=== PATIENT | female | born 1965 | race Caucasian/White ===

== ENCOUNTER 2024-12-28 15:42 | Emergency (ER) | payer OTHER, SELFPAY ==
[2024-12-28 15:59] VITALS: BP 170/81; PULSE 79; RESP 18; TEMP 36.1; O2SAT 97; BMI 41.2
--- NOTE | 2024-12-28 16:11 | ED.HA ---
HPI - Headache General Chief Complaint: Headache Stated Complaint: migraine Time Seen by Provider: 12/28/24 19:48 History of Present Illness ED Provider: Gilbert WALTER Narrative: The patient is a 59-year-old woman who has a long history of headaches which she calls migraine headaches. She has sumatriptan that she uses at home for her headaches. She has seen a neurologist. She has had an MRI. She says that usually her headaches are managed with sumatriptan. She has never come to the emergency room for a bad headache before. She says that yesterday she had the spent a lot of time with the an autistic grandchildren and she was feeling very achy by the end of the evening. She says that she woke up at 03:00 to go to the bathroom and she did not have a headache. However at 06:00 she woke up again with a headache. The headache was typical of her usual headaches. She used sumatriptan twice but she got no relief and came to the emergency room. She has been feeling photophobic. She has had nausea and vomiting. No fever, sweats, chills. No neck stiffness. Related Data Allergies Allergy/AdvReac Type Severity Reaction Status Date / Time Penicillins (PCN) Allergy Rash Verified 12/28/24 16:11 Sulfa (Sulfonamide Allergy Rash Verified 12/28/24 16:11 Antibiotics) Review of Systems Review of Systems: Yes all other systems are reviewed and are negative [facility] Social History Social History Advance Directives: No Advance Directives Information Provided: No Physical Exam Vital Signs: Vital Signs: Last Vital Signs Temp 0 F L 12/28/24 21:50 Pulse 0 L 12/28/24 21:50 Resp 0 L 12/28/24 21:50 BP 0/0 L 12/28/24 21:50 Pulse Ox 0 L 12/28/24 21:50 O2 Del Method Room Air 12/28/24 21:43 BMI result Body Mass Index 41.2 Const: General: cooperative, healthy appearing, no acute distress, well developed, alert, awake and Physically active Orientation/consciousness: patient oriented x3 HEENT: Other: The face is symmetrical. Mucous membranes moist. Eyes: Other: Pupils are round equal, conjunctivae are clear, extraocular movements intact Neck: Neck: Yes normal visual inspection, Yes full ROM and Yes no meningeal signs Resp: Effort & Inspection: normal respiratory effort Auscultation: clear to auscultation bilaterally Cardio: Rate: regular rate Rhythm: regular rhythm Heart sounds: S1 normal heart sound present and S2 normal heart sound present Skin: Other: The skin is dry and unremarkable General skin exam: no rashes or lesions noted Neuro: General: patient oriented x3, tone normal, moves all extremities, no meningeal signs, no focal motor deficits and CN's II-XI intact bilaterally Extrem: Other: There is no calf swelling or tenderness. No asymmetry. No peripheral edema. Course Course Course Narrative: This is a Rapid Medical Exam performed in triage by Marya Boogie PA-C. Full HPI, ROS and PE to be performed by primary ED provider. 59 yo F w/pmhx migraines presenting to the ED c/o migraine headache since 6AM. Took 2 Imitrex without relief (0630 & 0830). +photophobia, nausea and vomiting. PE: NAD, nontoxic appearing, nonfocal Plan: labs, pain control Medications Administered Discontinued Medications Generic Name Dose Route Start Last Admin Trade Name Meghan PRN Reason Stop Dose Admin Diphenhydramine HCl 25 mg 12/28/24 19:44 12/28/24 19:55 Diphenhydramine Hcl 50 Mg/Ml Vial IVPUSH 12/28/24 19:45 25 mg ONCE ONE Administration Sodium Chloride 1,000 mls @ 999 mls/hr 12/28/24 19:45 12/28/24 21:42 Ns IV 12/28/24 20:45 Infused .Q1H1M SEDA Infusion Ketorolac Tromethamine 15 mg 12/28/24 19:44 12/28/24 19:55 Ketorolac Tromethamine 15 Mg/Ml Vial IVPUSH 12/28/24 19:45 15 mg ONCE ONE Administration Metoclopramide HCl 10 mg 12/28/24 19:44 12/28/24 19:55 Metoclopramide Hcl 10 Mg/2 Ml Vial IVPUSH 12/28/24 19:45 10 mg ONCE ONE Administration Medical Decision Making Medical Decision Making [facility] Narrative: the patient is a 59-year-old woman with a history of headaches that she describes as migraine headaches. Normally she is able to manage her headaches with sumatriptan. She woke up this morning with a headache typical of her usual headaches but which did not respond to her usual management. Clinically the patient does not appear acutely ill in any way. She has a supple neck and an overall very benign clinical appearance. I do not have any significant suspicion for subarachnoid hemorrhage or meningitis or other acutely dangerous headache. I think this is a worse than usual typical headache for this patient. The patient was treated with ketorolac, metoclopramide, diphenhydramine, and IV fluids. She had very good resolution of her headache and was comfortable going home. She should follow up with the regular providers. Lab Data 12/28/24 16:54 12/28/24 16:54 Labs: Lab Results 12/28/24 Range/Units 16:54 WBC 5.2 (4.8-10.8) X10*3/uL RBC 4.71 (4.20-5.50) X10*6/uL Hgb 13.0 (12.0-16.0) g/dl Hct 40.1 (37.0-47.0) % MCV 85.1 (80.0-98.0) fL MCH 27.6 (27.0-33.0) pg MCHC 32.4 (31.0-35.0) g/dl RDW 14.1 (11.0-16.0) % Plt Count 280 (160-400) X10*3/uL MPV 9.1 L (9.4-12.3) fL Immature Gran % (Auto) 0.2 (0.0-0.4) % Neut % (Auto) 46.7 (45-73) % Lymph % (Auto) 41.8 H (20-40) % [place] % (Auto) 6.7 (2-11) % Eos % (Auto) 3.6 (0-4) % Baso % (Auto) 1.0 (0-2) % Lymph # (Auto) 2.2 (1.2-4.9) X10*3/uL [place] # (Auto) 0.4 (0.1-1.2) X10*3/uL Eos # (Auto) 0.2 (0.0-0.4) X10*3/uL Baso # (Auto) 0.1 (0.0-0.2) X10*3/uL Abs Immat Gran (auto) 0.01 (0.00-0.03) X10*3/uL Absolute Neuts (auto) 2.4 (2.0-8.3) x10*3/uL Absolute Nucleated RBC 0.000 (0.0-0.012) X10*3/uL Nucleated RBC % (auto) 0.0 (0.0-0.2) /100WBC Sodium 140 (135-145) mmol/L Potassium 3.7 (3.3-5.1) mmol/L Chloride 106 (96-108) mmol/L Carbon Dioxide 24 (22-29) mmol/L Anion Gap 14 (12-20) BUN 10 (9-16) mg/dL Creatinine 0.79 (0.5-1.4) mg/dL Estim Creat Clear Calc 88.0 Estimated GFR > 60 Random Glucose 95 (60-115) mg/dL Calcium 9.3 (8.4-10.2) mg/dL Discharge Plan Discharge Clinical Impression: Migraine headache Patient Disposition: Home, Self-Care Instructions: Migraine Headache (ED) Additional Instructions: The medications that you received today were ketorolac (Toradol), metoclopramide (Reglan), and diphenhydramine (Benadryl). You also received IV fluids. Please plan on getting some rest tonight. Please follow up with your regular doctors. Return to the emergency room if worse. Referrals: Dedra Duarte PA [Primary Care Provider, Hospitalist] Interventions: ED Discharge Assessment Last Done: 12/28/24 21:50 Discharge Date/Time: 12/28/24 21:51 Print Language: Greek
[2024-12-28 17:02] LABS: MANUAL DIFF FLAG NO
[2024-12-28 17:04] LABS: Hematocrit 40.1 % (37.0-47.0); Hemoglobin 13.0 g/dl (12.0-16.0); Imm Gran Abs Auto 0.01 X10*3/uL (0.00-0.03); Imm Gran Pct Auto 0.2 % (0.0-0.4); Lymphocytes Absolute Auto 2.2 X10*3/uL (1.2-4.9); Mean Corpuscular HGB Conc 32.4 g/dl (31.0-35.0); Mean Corpuscular Hemoglobin 27.6 pg (27.0-33.0); Mean Corpuscular Volume 85.1 fL (80.0-98.0); NRBC Abs Auto 0.000 X10*3/uL (0.0-0.012); NRBC Pct Auto 0.0 /100WBC (0.0-0.2); Platelet Count 280 X10*3/uL (160-400); Red Blood Count 4.71 X10*6/uL (4.20-5.50); White Blood Count 5.2 X10*3/uL (4.8-10.8)
--- OUTSIDE RECORDS SUMMARY | 2024-12-28 17:08 | XMS_ITS | Data Portability ---
Author Organization [place] - [facility], [facility] [place] Address [address] [place] [address] Care Team Providers Care Electrical Controls Assembler Name Role Phone BAILEY JOSSELINSALLIE Primary Care Provider [phone] Assessment No assessment recorded. Plan of Treatment Reminders Order Date Submit Date Provider Last Modified By Organization Details Last Modified Time Details Appointments None recorded. Lab None recorded. Referral None recorded. Procedures None recorded. Surgeries None recorded. Imaging XR, thoracic spine, 2 view - ROOM 1, T-Spine Pain 2023 024 [email or web address] [facility], [address], [place], [address], 14:37:49 Medication Orders None recorded. Patient TargetsNo targets recorded. Patient InstructionsNo instructions recorded. Reason for Referral None Reported. Results Created Date Observation Date Name Description Value Unit Range Abnormal Flag Note LastModifiedBy Organization Detail LastModifiedTime 08/29/1908/29/2023 XR, thora cic spine , 2 view [email or web address] ?Encry pted=s hAaTro YD8dLq bEUv6g %2BXZw aYqtaq 0bqfl% 2Fg9IQ a4ajBk vP9nXo QUaueC m3YtLR FvZlgJ JJ8mAn HZtai3 0m0401 AC0Kpa HWFVqH eUC8mr 84%3D INTERFACE [facility] [address], [place], [address], 08/29/2023 13:32:11 08/29/19 24 08/29/2023 XR, thora cic spine , 2 view [email or web address] ?Encry pted=s hAaTro YD8dLq bEUv6g %2BXZw aYqtaq 0bqfl% 2Fg9IQ a4ajBk vP9nXo QUaueC m3YtLR FvZlgJ JJ8mAn HZtai3 6z2862 AC0Kpa HWFVqH eUC8mr 84%3D INTERFACE [facility] [address], [place], [address], 08/29/2023 13:32:13 Result Notes Documentation Provider Name and Address Organization Details Recorded Time Xr, Thoracic Spine, 2 View : [email or web address] Encrypted=ptFgZusJK9kEpvA Uv6g%9UAHbcUjpgm6pcou%2Fg 7YRp8nvHgaV0eGzKBjgdDd2Vv UQDwFuzJSL0qDnYGiyz65d699 7TH4PbgOCLPnJwLA2ax75%3D Not Available [facility] 08/29/2023 13:3 2:12 Xr, Thoracic Spine, 2 View : [email or web address] Encrypted=xoRfVozPZ8dCgyR Uv6g%1SNVknOilww9rqzp%2Fg 2MXv2kiSkxF7vDcRKidbBs2Ob BXMeXwoMPZ5rBdSVavc44g599 6VS7IpwUCYYzYoHY5yl26%3D Not Available [facility] 08/29/2023 13:3 2:13 Problems Name Problem SNOMED Code Status Onset Date Resolution Date Notes Provider Name and Address Organization Details Recorded Time No complaints 070047849 Active Status : 'A'; Not Available [facility] 09:26:11 Problem Notes None recorded. Medical Equipment None Reported. Allergies Allergen ID Allergen Name Allergen Category Reaction Reaction Severity Criticality Documentation Date Start Date Code Code System Note Provider Name and Address Organization Details Recorded Time 15470 Product containin g penicilli n (product) medicatio n Not available Not available Not available 04/30/20232013 39444 8001 SNOMED Aller gyRea ction : 'Skin React ion'; Not Available [facility] 4 12:08:57 11333 Substance with sulfonami de structure and antibacte rial mechanism of action (substanc e) medicatio n Not available Not available Not available 04/30/20232013 30829 8003 SNOMED Not Available [facility] 4 12:08:57 Medications Name Sig Start Date Stop Date Status Note LastModified by Organization Details LastModified Time doxepin 25 mg capsule TAKE 1 CAPSULE BY MOUTH AT BEDTIME active Not Available Not Available No t Available sumatriptan 50 mg tablet PLEASE SEE ATTACHED FOR DETAILED DIRECTIONS active Not Available Not Available N ot Available tramadol 50 mg tablet TAKE 1 TABLET BY MOUTH EVERY 4 HOURS NEEDED FOR PAIN active Not Available Not Available No t Available meloxicam 7.5 mg tablet TAKE 1 TABLET BY MOUTH EVERY DAY active Not Available Not Available No t Available methocarbamo l 750 mg tablet TAKE 1 TABLET BY MOUTH 3 TIMES A DAY FOR 14 DAYS, FOR NECK PAIN active Not Available Not Available No t Available clindamycin 1 % topical gel APPLY TO GROIN EVERY DAY AFTER BENZOYL PEROXIDE WASH active Not Available Not Available No t Available pantoprazole 40 mg tablet,delay ed release TAKE 1 TABLET BY MOUTH DAILY. DISCONTINUE OMEPRAZOLE active Not Available Not Available N ot Available ibuprofen 400 mg tablet TAKE 2 TABLETS BY MOUTH 3 TIMES A DAY active Not Available Not Available Not Available topiramate 200 mg tablet TAKE 1 TABLET BY MOUTH AT BEDTIME active Not Available Not Available No t Available hydroxychlor oquine 200 mg tablet TAKE 2 TABLETS BY MOUTH EVERY DAY active Not Available Not Available No t Available methylpredni solone 4 mg tablets in a dose pack TAKE 6 TABLETS ON DAY 1 DIRECTED ON PACKAGE AND DECREASE BY 1 TAB EACH DAY FOR A TOTAL OF 6 DAYS active Not Available Not Available No t Available oxycodone 5 mg tablet TAKE 1 TABLET BY MOUTH EVERY 4 HOURS NEEDED FOR PAIN active Not Available Not Available No t Available bupropion HCl XL 300 mg 24 hr tablet, extended release TAKE 1 TABLET BY MOUTH EVERY DAY active Not Available Not Available No t Available trospium ER 60 mg capsule,exte nded release 24 hr TAKE 1 CAPSULE BY MOUTH EVERY DAY IN THE MORNING active Not Available Not Available No t Available Myrbetriq 50 mg tablet,exten ded release TAKE 1 TABLET BY MOUTH EVERY DAY active Not Available Not Available No t Available Vitals Date Recorded Body height Provider Name an d Address Organization Details Last Updated DateTime 08/29/2023 160.02 cm Prakash Roche [place] - [facility] 08/29/2023 13:24:35 Social History None recorded. Functional Status None recorded. Mental Status None recorded. Family History Nothing Reported. Medical History No medical history recorded. Gynecological HistoryNo gynecological history recorded. Obstetrics History GPAL:G 0 P 0 0 0 0 Past Encounters Encounter ID Performer Location Encounter Start Date Encounter Closed Date Diagnosis/Indication Diagnosis SNOMED-CT Code Diagnosis ICD10 Code Diagnosis IMO Codes Diagnosis Note [id number] Mukesh Leon PA-C [place] [address] [place] [address] 08/29/2023 13:13:30 08/29/2023 14:37:49 Thoracic back pain 370279422 M54.6 Myofascial pain syndrome of thoracic spine 6865179850 9101 M79.18 Health Concerns Section Related Observation LastModified by Organization Detai ls LastModified Time None Recorded Concern Status LastModified by Organization Details LastModified Time None Recorded Advance Directives Directive None Recorded Payers Insurance Date Sequence Insurance Name Policy Number Policy Caruso Covered Member ID Caruso Member ID Guarantor Name 09/21/[address] [place] [address] [id number] Nevaeh Fenton [id number] Nevaeh Fenton Notes Date Note Type Note Provider Name and Address Organization Details Recorded Time 08/29/2023 text/html I am seeing the patient today under the supervision of Dr. Penn who was available but who did not see the patient.HPI:Patient s of 57-year-old female comes to the office with complaints of discomfort about the left side mid back region just below the shoulder blade. She woke up out of bed and was startled several days ago, then she developed this mid to upper back pain on the left side. Feels like a muscle strain just below her shoulder blade. She denies any fall or injury. She was seen in urgent care today.Past family, medical, social history and review of systems has been reviewed, updated and is located in the patient s chart.Examination: The patient is well appearing and in no apparent distress. Alert and oriented x3. Gait is symmetric. No significant swelling, warmth, erythema about the left shoulder or shoulder blade. She has discomfort over the rhomboid on the left side. Range of motion of the left shoulder is full with minimal discomfort. Peripheral, vascular, lymphatic examination, skin, neurological, coordination, reflexes, sensation are within normal limits.X-rays ordered, obtained and reviewed at [facility] 2 views thoracic spine do not demonstrate any fractures evident bony abnormalities.Impre ssion:Myofascial mid back pain, left sidePlan:I reviewed the x-rays and diagnosed with patient. I believe that this is a muscular type injury to the mid and upper back region on the left side. We discussed conservative measures for this problem. Topical treatment is recommended and discussed. I recommended heat/heating pad. TENS unit recommended and discussed. P.r.n. NSAIDs can be used. We discussed risks associated with NSAID use. We discussed gentle strengthening when the discomfort emanates. She will follow-up as needed. Mukesh Leon PA-C [address], [place], [address], [facility] - [facility] 08/29/2023 14:22:06 OBGyn Episode No OBEpisode recorded.
--- OUTSIDE RECORDS SUMMARY | 2024-12-28 17:08 | XMS_ITS | Patient Health Record ---
Author Organization [facility] Address [address] [place] [address] Support Name Relationship Address Phone CYNTHIA NÚÑEZ Guarantor Unknown Reason For Referral No Information Medications Medication SIG (Take, Route, Fr equency, Duration) Notes Start Date End Date Status PROzac 10MG 1 ORAL every morning ; Duration: -3 Hair-MJ 03/29/2011 Active PriLOSEC OTC 20MG 1 ORAL twice daily; Duration: -3 Hair-MJ 03/29/2011 Active Ativan 0.5MG 1 ORAL three times d aily; Duration: 10 Hair-MJ 03/29/2011 Active Problems Problem Type SNOMED Code ICD Code Onset Dates Problem Status W/U Status Risk Notes Problem Depressive disorder (26643119) Depressive disorder, not elsewhere classified (311) Active confirmed Major Problem Esophageal reflux (502892510) Esophageal reflux (530.81) Active confirmed Major Problem Gynecological examination normal (115632550171419) Routine gynecological examination (V72.31) Active confirmed Major Plan Of Treatment No Information Insurance Providers Payer Name Payer Address Payer Phone Subscriber Number Group Number Insured Name Patient Relationship to Insured Coverage Start Date Coverage End Date [facility] [address] [place] [address] [id number] CYNTHIA NÚÑEZ Self - patient is the insured
[2024-12-28 17:15] LABS: Anion Gap 14 (12-20); Blood Urea Nitrogen 10 mg/dL (9-16); Calcium 9.3 mg/dL (8.4-10.2); Carbon Dioxide 24 mmol/L (22-29); Chloride 106 mmol/L (96-108); Creatinine Clr Calc Pharmacy 88.0; Estimated Glomerular Filt Rate > 60; Potassium 3.7 mmol/L (3.3-5.1); Sodium 140 mmol/L (135-145)
[2024-12-28 19:37] VITALS: BP 167/88; PULSE 86; RESP 20
--- NOTE | 2024-12-28 19:43 | PC.NURSE ---
IV established. Pt frustrated, crying in pain. MD aware of pain/nausea d/t persistent migraine, no relief with Imitrex x2. Plan for IV medications, pt aware of plan of care.
--- NOTE | 2024-12-28 20:05 | PC.NURSE ---
Pt medicated per MAR, resting in bed at this time.
--- NOTE | 2024-12-28 21:41 | PC.NURSE ---
Pt resting comfortably in bed, states she is pain free and ready to go home. gyroscopic engineering technician at bedside for discharge vitals.
[2024-12-28 21:43] VITALS: BP 110/61; PULSE 66; RESP 20; TEMP 36.6; O2SAT 96
[2024-12-28 21:50] VITALS: BP 0/0; PULSE 0; RESP 0; TEMP -17.7; TEMP 0; O2SAT 0
== END 2024-12-28 21:51 | disposition home or self-care (01) ==
PROVIDERS: Physician Assistant; Emergency Provider Emergency Medicine; PCP Physician Assistant
DX: G43.909 Migraine, unspecified, not intractable, without status migrainosus (principal); Z79.899 Other long term (current) drug therapy
CPT/HCPCS: 36415; 80048; 85025; 96361; 96374; 96375; 99284; J1200; J1885; J2765